=== PATIENT | male | born 2000 | race Caucasian/White ===

== ENCOUNTER 2021-02-28 12:16 | Outpatient (REF) | payer OTHER, SELFPAY ==
--- NOTE | ~2021-02-28 | XR_ITS ---
EXAMINATION: XR SHOULDER, RIGHT CLINICAL INFORMATION: Pain. COMPARISON: None TECHNIQUE: AP external rotation, Grashey, scapular Y, and axillary views of the right shoulder. FINDINGS: The bones and soft tissues are normal. No fracture. Glenohumeral and acromioclavicular alignment is anatomic with normal joint space. No abnormal soft tissue calcifications. XR/XR shoulder RT min 2V IMPRESSION: Normal right shoulder.
== END 2021-02-28 12:17 | disposition home or self-care (01) ==
LOC: HO.XRAY 12:16
PROVIDERS: PCP Pediatrics; Visit Provider Physician Assistant
DX: M25.511 Pain in right shoulder (principal); M25.311 Other instability, right shoulder
CPT/HCPCS: 73030; 99202

== ENCOUNTER 2021-03-12 14:16 | Outpatient (REF) | payer OTHER, SELFPAY ==
--- NOTE | ~2021-03-12 | MR_ITS ---
EXAMINATION: MR SHOULDER WITH CONTRAST, RIGHT CLINICAL INFORMATION: Instability right shoulder. Patient reports dislocation of the shoulder. COMPARISON: X-ray of the right shoulder 02/28/2021. TECHNIQUE: MRI of the shoulder was performed following the intra-articular administration of a dilute gadolinium-containing solution (arthrogram) on a high-field scanner. FINDINGS: Exam is limited because of image degraded motion artifact particularly on the axial series. ROTATOR CUFF: Intact. No muscle atrophy or fatty infiltration. BICEPS: Normal. CORACOACROMIAL ARCH: The undersurface of the acromion is curved with no subacromial spur. The acromioclavicular joint is normal. LABRUM/CAPSULE: Evaluation is limited because of image degraded motion artifact. Probable tear of the anterior inferior labral ligamentous complex with displacement of this inferior and medial to the anterior inferior glenoid best appreciated on the coronal series. Remaining portions of the labrum unremarkable. GLENOHUMERAL JOINT/MARROW: The articular cartilage is normal. There is a subtle concavity along the posterior aspect of the head-tuberosity junction likely reflecting an old impaction fracture. No definite surrounding edema. Minimal enthesopathic cystic change in the greater tuberosity. MR/MR shoulder RT w con IMPRESSION: The exam is limited because of motion artifact. Findings suggestive of anterior inferior displacement of the anterior inferior labral ligamentous complex consistent with tear. Probable old Hill-Sachs lesion.
--- NOTE | ~2021-03-12 | FL_ITS ---
EXAMINATION: FL FLUOROSCOPIC GUIDED SHOULDER ARTHROGRAM, RIGHT CLINICAL INFORMATION: Instability right shoulder. Prior dislocation. Intracapsular contrast for MRI. COMPARISON: Radiographs right shoulder 02/28/2021. TECHNIQUE: Proper informed consent is obtained from the patient after discussion of the procedure, potential risks and complications, and alternatives including declining the procedure today. Patient was given an opportunity for questions. The patient appeared to understand. The patient consented to the procedure and signed the consent form. Skin is prepped and draped. Local anesthesia is provided using 7 cc 1% lidocaine. Under fluoroscopic guidance, a 22-gauge needle was positioned into the shoulder joint capsule from an anterior approach. On initial injection of iodinated contrast, there is some anterior bursal distention. Needle repositioned and intracapsular location validated with injection of 2 mL Omnipaque 300 contrast. Subsequently, the patient received a 12 mL injection of 1% Gadavist in sterile normal saline. The patient tolerated the procedure well and had no immediate complication. Sterile dressing was placed and home instructions reviewed with the patient. MRI is described in separate report. Fluoroscopy time: 1.0 minutes DAP: 2.116 Gycm2 Images: 4 FL/FL arthrogram shoulder RT IMPRESSION: 1. Status post fluoroscopic guided right shoulder injection dilute gadolinium contrast. 2. See post-arthrography MRI report for further information.
== END 2021-03-12 14:17 | disposition home or self-care (01) ==
LOC: HO.XRAY 14:16
PROVIDERS: PCP Pediatrics; Visit Provider Physician Assistant
DX: M25.311 Other instability, right shoulder (principal)
CPT/HCPCS: 23350; 73040; 73222; A9585

== ENCOUNTER → 2021-03-21 09:14 | Outpatient (BNVA) | payer OTHER, SELFPAY | PROVIDERS: PCP Pediatrics; Visit Provider Physician Assistant | DX: S43.439A Superior glenoid labrum lesion of unspecified shoulder, initial encounter (principal) | CPT/HCPCS: 99212 ==

== ENCOUNTER 2021-04-02 06:58 | Day surgery (SDC) | payer OTHER, SELFPAY ==
[2021-03-25 16:16] VITALS: BMI 23.3
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
[2021-04-02] VITALS (7 sets, daily range): BP systolic 115–140; BP diastolic 72–87; PULSE 66–98; RESP 16–22; TEMP 36.6–37.1; O2SAT 94–99
[2021-04-02] MEDS: Lactated Ringers 1,000 ML 100 ML IVCONT (07:50)
--- NOTE | 2021-04-02 09:36 | MHC.SHP ---
Pre-Procedural Eval Section A Date of Service: 04/02/21 The patient is an INPATIENT: No Changes since office visit: Yes Patient answered all questions; No Cold of Flu in the past 2 weeks, No New Medical Problems and No Changes in Medication The History & Physical has been completed within 30 days and I have reviewed it.: Yes Section B Chief Complaint: labrum tear Allergies: Allergies Allergy/AdvReac Type Severity Reaction Status Date / Time No Known Allergies Allergy Verified 04/02/21 07:26 Plan I have reviewed the history and physical and performed a pertinent physical examination on my patient. No changes have occurred unless specified.
--- NOTE | 2021-04-02 09:36 | PM.OP ---
Brief Operative Note Date of Service: 04/02/21 Pre-op diagnosis: right shoulder instability Procedure: right shoulder capsular plication Implants: [employer] and nephOptifreeze micro raptor x 2, 1 Q-fix Surgeon: Jerome Saeed MD Was an Driver Messenger used for this Procedure?: No Estimated blood loss (mL): 5 IV fluids (mL): 900 Pathology: none sent Condition: stable Disposition: PACU
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
== END 2021-04-02 11:06 | disposition home or self-care (01) ==
PROVIDERS: PCP Pediatrics; Visit Provider Orthopaedic Surgery
PROC: (CPT 29805; principal; 2021-04-02 09:00)
DX: S43.431A Superior glenoid labrum lesion of right shoulder, initial encounter (principal); M25.311 Other instability, right shoulder; X58.XXXA Exposure to other specified factors, initial encounter; Y93.9 Activity, unspecified; Y92.9 Unspecified place or not applicable; Y99.8 Other external cause status
CPT/HCPCS: 29806; C1713; J0131; J0171; J0690; J1100; J2250; J2405; J3010

== ENCOUNTER → 2021-04-11 09:36 | Outpatient (BNVA) | payer OTHER, SELFPAY | PROVIDERS: PCP Pediatrics; Visit Provider Physician Assistant | DX: M25.311 Other instability, right shoulder (principal) | CPT/HCPCS: 99212 ==

== ENCOUNTER 2021-04-22 14:02 | Outpatient (RCR) | payer OTHER, SELFPAY ==
--- NOTE | 2021-04-22 15:44 | MHC.PT.EP ---
[facility] [place] Office [place] Office [place] Office [address] Randell Rodriguez [address] [phone] F: [phone] F: [phone] F: [phone] F: [phone] Physical Therapy Plan of Care Date of Evaluation: Date of Surgery: 04/02/21 Diagnosis: R anterior shoulder capsular plication done on 04/02/21 Assessment: pt presents to physical therapy with pain, decreased range of motion, decreased strength, impaired functional mobility, and impaired postural awareness. pt is a good candidate for skilled PT due to age, potential remediation of impairments, typical disease/condition progression and prognosis, comorbidities, and motivation. pt would benefit from tailored strengthening and stretching exercise program, functional training, postural re-training, neuromuscular re-education, modalities as needed for pain, equipment safety demonstration. Frequency and Duration: The patient will be seen 2x/wk for 10 wks Short Term Goals: pt will be I w/ HEP to promote self-management of post-operative state. pt will improve R shoulder flexion by 10 degrees to promote ease in upper body dressing. Supervising Law Enforcement Analyst Goals: pt will increase R shoulder strength to 4/5 in all planes to promote ease in child-care activities. pt will report a statistically significant improvement in self-reported outcome measure, SPADI, to promote return to PLOF. Treatment Plan: Modalities to reduce pain, spasms and effusion. Manual therapy to restore motion and function. Therapeutic exercise to improve strength and flexibility. Neuromuscular re-education for posture and balance. Therapeutic activities to return to functional activities of daily living. Electronically signed by: Mihaela Kirby PT, DPT Please sign and return to therapist. Thank you for your referral.
--- NOTE | 2021-05-20 11:20 | MHC.PT.DC ---
[facility] [place] Office [place] Office [place] Office [address] Randell Rodriguez 140 [facility] [phone] F: [phone] F: [phone] F: [phone] F: [phone] Physical Therapy Discharge Report Diagnosis: R anterior shoulder capsular plication done on 04/02/21 Date of Surgery: 04/02/21 Date of Evaluation: 04/22/21 Date of Discharge: 05/20/21 Treatments to Date: 1 Cancellations to Date: 4 No Shows to Date: 2 Discharge Status: Visit Non-compliance Discharge Summary: The patient has not attended any scheduled visits since his initial evaluation. He is discharged from this physical therapy plan of care. His current post-operative status is unknown. He will need a new script if he wishes to return to physical therapy. Electronically signed by: Mihaela Kirby PT, DPT Please sign and return to therapist. Thank you for your referral.
== END 2021-05-20 11:21 | disposition home or self-care (01) ==
LOC: HO.PT 14:02
PROVIDERS: PCP Pediatrics; Visit Provider Physician Assistant
DX: M25.311 Other instability, right shoulder (principal)
CPT/HCPCS: 97110; 97161

== ENCOUNTER → 2021-05-15 14:32 | Outpatient (BNVA) | payer OTHER, SELFPAY | PROVIDERS: Visit Provider Orthopaedic Surgery | DX: M25.311 Other instability, right shoulder (principal) | CPT/HCPCS: 99212 ==

== ENCOUNTER 2025-02-09 21:14 | Emergency (ER) | payer MEDICAID, SELFPAY ==
--- NOTE | ~2025-02-09 | XR_ITS ---
CLINICAL HISTORY: right shoulder pain Right shoulder, 3 views COMPARISON: None FINDINGS: No acute fracture. Anterior right shoulder dislocation. Unremarkable soft tissues. IMPRESSION: Anterior right shoulder dislocation. This document has been electronically signed by: Lukas Leslie MD on 02/09/2025 23:16:32
--- NOTE | ~2025-02-09 | XR_ITS ---
CLINICAL HISTORY: post reduction 3 view right shoulder Comparison: CR - XR SHOULDER RT MIN 2V - 02/09/25 21:49 EDT Findings: There is interval reduction in the previously demonstrated dislocation injury at the right glenohumeral joint. No acute fracture visualized on the provided radiographic images. The right acromioclavicular and coracoclavicular distances are within normal limits for appearance. The visualized portion of the right lung appears clear. No radiopaque foreign body. IMPRESSION: 1. Interval reduction in the previously demonstrated dislocation injury at the right glenohumeral joint. Bony alignment appears anatomic on the current exam. This document has been electronically signed by: Wayne Blunt MD on 02/10/2025 02:02:44
[2025-02-09 21:16] VITALS: BP 116/82; BP 118/77; PULSE 70; PULSE 88; RESP 18; TEMP 37.2; O2SAT 97; O2SAT 98; BMI 21.8
--- OUTSIDE RECORDS SUMMARY | 2025-02-09 21:33 | XMS_ITS | Clinical Summary ---
Author Organization [facility] [facility] [employer] [facility] ity Address [address] [place] [address] Care Team Providers Care Forging Engineer Name Role Phone Unavailable Primary Care Provider Unavailabl e Social History Tobacco Use Types Packs/Day Years Used Date Smoking Tobacco: Unknown Sex and Gender Information Value Date Recorded Sex Assigned at Not on file Legal Sex Male 3:51 AM EST Gender Identity Not on file Sexual Orientation Not on file Obstetrics History Last Filed Vital Signs Vital Sign Reading Time Taken Comments Blood Pressure - - Pulse - - Temperature - - Respiratory Rate - - Oxygen Saturation - - Inhaled Oxygen Concentration - - Weight 59 kg (130 lb) 10/15/2023 3:58 PM EST Height 167.6 cm (5' 6 ) 10/15/2023 3:58 PM EST Body Mass Index 20.98 10/15/2023 3:58 PM EST Plan of Treatment Health Maintenance Due Date Last Done Comments HPV Vaccines (1 - Male 3-dos e series) 2014 DTaP,Tdap,and Td Vaccines (1 - Tdap) 2018 Hepatitis B Vaccines (1 of 3 - 19+ 3-dose series) 2018 Depression Screening 10/05/2023 HIV Screening 10/05/2023 Hepatitis C Screening 10/05/2023 Social Influencers of Health Screening 10/05/2023 COVID-19 Vaccine (1 - 2023-2 5 season) 2024 Influenza Vaccine (Season Ended) 2025 HIB Vaccines Aged Out No longer eligi ble based on patient's age to complete this topic Hepatitis A Vaccines Aged Out No long er eligible based on patient's age to complete this topic IPV Vaccines Aged Out No longer eligi ble based on patient's age to complete this topic MMR Vaccines Aged Out No longer eligi ble based on patient's age to complete this topic Meningococcal ACWY Vaccine Aged Out N o longer eligible based on patient's age to complete this topic Meningococcal B Vaccine Aged Out No l onger eligible based on patient's age to complete this topic Pneumococcal Vaccine: Pediat rics (0 to 5 Years) and At-Risk Patients (6 to 64 Years) Aged Out No longer eligible b ased on patient's age to complete this topic RSV Immunization Patients Un richard 20 months Aged Out No longer eligible b ased on patient's age to complete this topic Varicella Vaccines Aged Out No longer eligible based on patient's age to complete this topic
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
[2025-02-10 00:18] VITALS: BP 107/68; PULSE 67; RESP 20; TEMP 36.4; O2SAT 98
[2025-02-10 00:44] VITALS: BP 107/68; PULSE 67; RESP 20; TEMP 36.4; O2SAT 98
== END 2025-02-10 00:44 | disposition home or self-care (01) ==
PROVIDERS: Emergency Provider Internal Medicine
DX: S43.004A Unspecified dislocation of right shoulder joint, initial encounter (principal); M25.511 Pain in right shoulder; X50.1XXA Overexertion from prolonged static or awkward postures, initial encounter; Y93.9 Activity, unspecified; Y92.9 Unspecified place or not applicable; Y99.8 Other external cause status
CPT/HCPCS: 23650; 64415; 64450; 73030; 99284

== ENCOUNTER → 2025-02-09 21:55 | Outpatient (BNV) | payer MEDICAID, SELFPAY | PROVIDERS: Emergency Provider Internal Medicine; Visit Provider Radiology Diagnostic Radiology | DX: M25.511 Pain in right shoulder (principal) | CPT/HCPCS: 73030 ==